=== PATIENT | male | born 1950 | race Caucasian/White ===

== ENCOUNTER → 2016-04-04 | Outpatient (CLI) | payer BC ==
[~2016-04-04] MED LIST: ASPI81TA28 PO; ATOR-26 PO; CARV3.122 PO; CHOL100010 PO; CYAN1TAB5 PO; INSU1INJ7 SC; METF-384 PO; NTRGSL/4 UT; NVLGI SC; SILD100T PO
--- NOTE | 2016-04-04 13:44 | DIAGNOSTIC IMAGING REPORT ---
BILATERAL CAROTID DOPPLER STUDY HISTORY: CORONARY ARTERY DISEASE COMPARISON: None. TECHNIQUE: Real-time, grayscale, and color Doppler sonography of the carotid arteries was performed. Imaging reviewed in the transverse and longitudinal planes. All measurements were calculated based on NASCET criteria. FINDINGS: Antegrade flow is seen in the bilateral vertebral arteries. The brachial pressures are hemodynamically similar. Mild scattered calcified plaque within the bilateral carotid arteries. The peak systolic velocity within the right ICA is 62 cm/s. The right systolic ratio is 1.1. The peak systolic velocity within the left ICA is 82 cm/s. The left systolic ratio is 1.0. IMPRESSION: No hemodynamically significant stenosis seen within the carotid arteries. Electronically signed by: Gibson Peguero M.D. 04/04/2016 1:42 PM Dictated Date/Time: 04/04/2016 1:42 PM
== END | disposition home or self-care (01) ==
LOC: C.ULTRBC 12:53
PROVIDERS: ATTEND Internal Medicine Cardiovascular Disease
DX: I25.10 Atherosclerotic heart disease of native coronary artery without angina pectoris (principal)

== ENCOUNTER → 2016-04-11 | Outpatient (CLI) | payer BC ==
[~2016-04-11] VITALS: Ht 180.3 cm; Wt 11.0 kg
[2016-04-11 15:57] VITALS: BP 137/78; PULSE 94; Ht 180.3 cm; Wt 11.0 kg
== END | disposition home or self-care (01) ==
LOC: C.NEUR 14:22
PROVIDERS: ATTEND Allergy & Immunology Allergy
DX: R06.83 Snoring (principal); R06.81 Apnea, not elsewhere classified; I25.10 Atherosclerotic heart disease of native coronary artery without angina pectoris; E78.5 Hyperlipidemia, unspecified; I10 Essential (primary) hypertension

== ENCOUNTER → 2016-04-27 | Outpatient (CLI) | payer BC ==
--- NOTE | 2016-04-28 06:07 | PAP/PSG TECHNICIAN REPORT ---
[facility] Experimental Worker Polysomnogram Report Study name: None Report date: 04/28/2016 Study date: 04/27/2016 Referring Physician: Jodee Mckoy PA-C Name: ALEJANDRA HEATON Interpreting Physician: Matt Valencia M.D. Date of : 1950 Experimental Worker: Carina Swain RPSGT. Sex: Male Age: 65 StudyType: PSG Weight: 242 lbs Height: 65 years, Height 5' 11" Neck Circum:17inches BMI: 33.75 Medications: ASA 81mg, Atorvastatin 80mg, B-12 2000mcg, Carvedilol 3.125mg, Lantus 100 unit/ml, Lisinopril 5mg, Melatonin, Metformin HCl 1000mg, Vit D, Nitrostat 0.4mg, Novolog 100unit/ml, Viagra 100mg Patient History Study started on room air with no ETCO2 monitoring in room #8. 65 yr old male here tonight for a diagnostic psg. He has a history of CAD s/p coronary artery bypass grafting in 2014. He has HTN, type 2 DM, dyslipidemia, GERD, obesity and osteoarthritis. His noted apneic episodes for the past 2 years. He snores but feels rested during the day. Neck circ=17inches. Parameters Monitored NPSG: E1-M2, E2-M1, Fp1-M2, Fp2-M1, F3-M2, F4-M2, F4-M1, C3-M2, C4-M2, C4-M1, O1-M2, O2-M2, O2-M1, T3-M2, T4-M1, P3-M2, P4-M1, CHIN1, CHIN2, HR, EKG, Legs, PFLOW, SNOR, FLOW, CFLOW, Tidal Volume, THOR, ABDO, SpO2, PLTH, CPRESS, ETCO2 Wave, ETCO2, pH Sleep Architecture Sleep Stages Time at Lights Off 10:34:12 PM STAGES Time (min.) TST (%) Time at Lights On 5:47:12 AM Wake 121.5 -- Total Recording Time (TRT) 432.50 min. N1 30.0 10 Total Sleep Period (TSP) 412.5 min. N2 190.0 61 Total Sleep Time (TST) 311.0min. N3 45.0 14 Awake Time 121.5 min. REM 46.0 15 Wake after Sleep Onset 103.5 min. Sleep Efficiency (SE) 72 % Sleep Onset Latency (PILY) 18.5 min. Number of Stage 1 Shifts None Awakenings 26 Stage Changes 118 Number of REM periods 5 REM 46.0 15 REM Latency 142.5 min. NREM 265.0 85 Body Position Analysis Supine Right Left Side Prone Vertical Total Sleep Time (min.) 149.6 194.5 35.0 229.51 0.0 0.0 Total Sleep Time (%) 26% 63% 11% 74 0% N/A% Total Sleep Time REM (min.) 13.5 32.5 0.0 None 0.0 0.0 Total Sleep Time NREM (min.) 68.0 162.0 35.0 None 0.0 0.0 Intermittent Wake (min.) 68.1 51.5 1.9 None 0.0 0.0 Total Sleep Period (%) 33% None None None None None Arousals Myoclonus (PLM) * Events Count Index Events Count Index Spontaneous 11 2 Events Awake (PLMW) 260 128.4 Respiratory 73 15.8 Events Asleep w/ Arousal (PLMA) 29 5.6 PLM 29 6 Events Asleep w/o Arousal (PLMS) 287 55.4 Snoring 5 1 Total Asleep 316 61.0 Total 118 23 Total 576 80 Respiratory Analysis * CA OA MA CH H RERA Total Count 2 35 0 0 81 0 118 Index 0.4 6.8 0.0 0 15.6 0 22.8 Mean Duration 22.3 23.5 0.0 0.00 21.0 0.0 21.7 Longest Duration 27.1 32.4 0.0 0.00 0.0 0.0 32.4 Respiratory Event Summary Total Supine ~Supine Right Left Prone REM NREM Apneas Count 37 34 3 3 0 N/A 0 37 Index 7.1 25 1 0.9 0.0 N/A 0 8 Hypopneas (4% Desat) Count 81 57 24 21 3 N/A 9 72 Index 15.6 42.0 6 6.5 5.1 N/A 11.7 16.3 Apneas & All Hypopneas Count 118 91 27 24 3 N/A 9 109 Index 22.8 67 7 7 5 N/A 11.7 24.7 Respiratory Events (Plate Keeper+All Hyp+RERA) Count 118 91 27 24 3 N/A 9 109 Index 22.8 67 7 7.4 5.1 N/A 11.7 24.7 Respiratory Related Arousal Count 73 91 9 9 0 N/A 1 81 Index 15.8 54 2 3 0 N/A 1 18 Snoring Analysis Supine Right Left Prone REM NREM Total Snore duration 8.6 min Snores count 122 79 68 N/A 4 265 269 Snore mean duration 1.9 Sec Snores index 90 24 117 N/A 5.2 60.0 51.9 TST with snoring (%) 2.8% Desaturation Event Summary: Minimum %SpO2 Event Count Mean/Min/Max Duration(sec.) Desaturation Index % Time In Bed > 90 171 20.9 / 5.0 / 60.0 27.8 86.6 86 - 90 1 19.0 / 19.0 / 19.0 1.1 12.9 81 - 85 0 N/A 0.0 0.4 76 - 80 0 N/A 0.0 0.0 71 - 75 0 N/A 0.0 0.0 66 - 70 0 N/A 0.0 0.0 61 - 65 0 N/A 0.0 0.0 56 - 60 0 N/A 0.0 0.0 51 - 55 0 N/A 0.0 0.0 < 50 0 N/A 0.0 0.0 Total REM NREM Awake <50% 0.0 min. 0.0 min. 0.0 min. 0.0 min. 51 - 60% 0.0 min. 0.0 min. 0.0 min. 0.0 min. 61 - 70% 0.0 min. 0.0 min. 0.0 min. 0.0 min. 71 - 80% 0.0 min. 0.0 min. 0.0 min. 0.0 min. 81 - 90% 57.1 min. 3.3 min. 35.7 min. 18.1 min. 91 - 100% 369.6 min. 42.6 min. 226.7 min. 100.3 min. Average 92 93 92 92 Minimum SpO2 81 89 81 86 Desaturation Event Index 23.7 13.0 24.7 27.2 # Desat. Events below 89% 64 N/A 50 14 Time(%) with Saturation below 89% 2.5 0.0 1.9 0.6 Time(min.) with Saturation below 89% 10.9 0.0 8.3 2.6 Time (mins) REM (mins) NREM (mins) % of TST SpO2 Below 90% 82 6 N76 4.4 SpO2 Below 88% 17 0 0 2 Heart Rate Analysis Min (bpm) Max (bpm) Average (bpm) Awake 31 127 65 NREM 46 127 60 REM 54 79 64 Overall 46 127 60 Supplemental O2 Values Minimum O2 level: None Value Start Time End Time Experimental Worker Comments Mr. Grier slept in the right, left and supine and positions. No cardiac arrhythmia noted. PLM's were noted. No bruxism noted. Snoring was noted and scored as a 3 on a scale of 1 through 5. (0=no snoring, 5=snoring loud enough to be heard through a closed door or down the menard way). He did not use the restroom during the night. He stated that he slept a little worse than when at home. The final report will be interpreted and signed by a sleep physician. The completed physician report will then be placed in the patient medical record. Therapy (cm H2O) 0 TIB (min.) 432.5 TST (min.) 311.0 Sleep Onset (min.) 18.5 REM Onset From Sleep (min.) 142.5 Sleep Efficiency % 72 Wakefulness (%) 28 Wakefulness (min.) 121.5 NREM 1 (%) 10 NREM 1 (min.) 30.0 NREM 2 (%) 61 NREM 2 (min.) 190.0 NREM 3 (%) 14 NREM 3 (min.) 45.0 REM (%) 15 REM (min.) 46.0 # Arousals 118 Arousal Index 23 # Snore 269 Snore Index 51.9 AHI 22.8 AHI Supine 67 AHI Non-Supine 7 NREM AHI 24.7 REM AHI 11.7 RDI 22.8 # Obstructive Apnea 35 # Central Apnea 2 # Mixed Apnea 0 # Hypopneas 81 RERAs 0 Total Respiratory Events 137 Time Below SpO2 89% (min.) 8.3 Mean NREM SpO2 (%) 92 Mean REM SpO2 (%) 93 Mean Sleep SpO2 (%) 92 Min NREM SpO2 (%) 81 Min REM SpO2 (%) 89 Position Supine (min.) 149.6 Position Non-supine (min.) 229.5 LM Index Sleep 61.0 LM Index NREM 67.9 LM Index REM 20.9 Mean Heart Rate (bpm) 60 Min Heart Rate (bpm) 46
--- NOTE | 2016-04-28 23:47 | POLYSOMNOGRAPH REPORT ---
CLINICAL DATA: A 65-year-old male with BMI of 33.75 referred by Jodee Mckoy, myself, and Dr. Hawkins for evaluation of sleep apnea. He has had coronary bypass grafting. His was noted apneic episodes for the past 2 years. He does not feels rested when he awakens. SLEEP ARCHITECTURE: Total sleep period was 412.5 minutes. Total sleep time was 311 minutes divided between 265 minutes of non-REM sleep and 46 minutes of REM sleep. Sleep onset latency was normal at 18.5 minutes. REM latency was slightly prolonged at 142.5 minutes. Sleep efficiency was reduced at 72%. Wake after sleep onset was 103.5 minutes. Sleep consisted of stage N1 10%, N2 61%, N3 14%, and REM 15%. AROUSAL DATA: 118 arousals were recorded for an index of 23 per hour. 72 were due to respiratory events. PLM DATA: Markedly elevated limb movements during sleep were noted. There were 316 limb movements during sleep noted for an index of 61 per hour with arousals of 5.6 per hour. RESPIRATORY DATA: Moderate sleep apnea was documented. The AHI was 22.8. There were 2 central and 35 obstructive apneic episodes. The longest duration of apnea was 32.4 seconds. There were 81 hypopneic episodes. The mean duration of hypopnea was 21 seconds. OXIMETRY DATA: Nocturnal hypoxemia was seen. Oxygen landon was 81%. Mean saturation was 92%. Time below 88% was 17 minutes. EKG: Heart rates ranged from 46-127 beats per minute. No arrhythmias were noted. PIPE FITTER WELDING'S COMMENTS: The patient was slept in the right, left, and supine positions. Snoring was moderate, rated 3 on a scale of 1-5. IMPRESSION: Moderate sleep apnea/hypopnea with an apnea-hypopnea index of 22.8 with nocturnal hypoxemia. RECOMMENDATIONS: The patient may benefit from a repeat sleep study with CPAP or use of an oral appliance. TELMA
== END | disposition home or self-care (01) ==
LOC: C.NEUR 20:00
PROVIDERS: ATTEND Allergy & Immunology Allergy
DX: G47.36 Sleep related hypoventilation in conditions classified elsewhere (principal)

== ENCOUNTER → 2016-05-02 | Outpatient (CLI) | payer BC ==
[~2016-05-02] VITALS: Ht 180.3 cm; Wt 110.6 kg
[2016-05-02 16:50] VITALS: BP 153/75; PULSE 71; Ht 180.3 cm; Wt 110.6 kg
== END | disposition home or self-care (01) ==
LOC: C.NEUR 15:38
PROVIDERS: ATTEND Internal Medicine Pulmonary Disease
DX: G47.33 Obstructive sleep apnea (adult) (pediatric) (principal); I25.10 Atherosclerotic heart disease of native coronary artery without angina pectoris; Z95.1 Presence of aortocoronary bypass graft

== ENCOUNTER → 2016-08-15 | Outpatient (CLI) | payer BC ==
[~2016-08-15] VITALS: Ht 180.3 cm; Wt 81.0 kg
[2016-08-15 13:39] VITALS: BP 132/72; PULSE 81; BMI 24.9
[2016-08-15 13:40] VITALS: BP 132/72; PULSE 81; Ht 180.3 cm; Wt 81.0 kg
== END | disposition home or self-care (01) ==
LOC: C.NEUR 13:19
PROVIDERS: ATTEND Physician Assistant Medical
DX: G47.33 Obstructive sleep apnea (adult) (pediatric) (principal); I25.10 Atherosclerotic heart disease of native coronary artery without angina pectoris; E66.9 Obesity, unspecified

== ENCOUNTER → 2016-10-31 | Outpatient (CLI) | payer BC ==
[~2016-10-31] VITALS: Ht 180.3 cm; Wt 112.6 kg
[2016-10-31 15:47] VITALS: BP 134/76; PULSE 86; Ht 180.3 cm; Wt 112.6 kg
== END | disposition home or self-care (01) ==
LOC: C.NEUR 14:00
PROVIDERS: ATTEND Physician Assistant Medical
DX: G47.33 Obstructive sleep apnea (adult) (pediatric) (principal); I25.10 Atherosclerotic heart disease of native coronary artery without angina pectoris; I10 Essential (primary) hypertension; E66.9 Obesity, unspecified

== ENCOUNTER → 2016-12-05 | Outpatient (CLI) | payer BC ==
[~2016-12-05] VITALS: Ht 180.3 cm; Wt 111.4 kg
[2016-12-05 15:47] VITALS: BP 131/76; PULSE 78; Ht 180.3 cm; Wt 111.4 kg
== END | disposition home or self-care (01) ==
LOC: C.NEUR 14:29
PROVIDERS: ATTEND Physician Assistant Medical
DX: G47.33 Obstructive sleep apnea (adult) (pediatric) (principal); E66.9 Obesity, unspecified; R06.83 Snoring; I25.10 Atherosclerotic heart disease of native coronary artery without angina pectoris

== ENCOUNTER → 2017-02-16 | Outpatient (CLI) | payer BC ==
[2017-02-16 12:42] LABS: HEMATOCRIT 44.4 % (42-52); MEAN CELL VOLUME 93.5 fL (80-100); MEAN CORPUSCULAR HGB CONC 34.2 g/dl (32-36); MEAN PLATELET VOLUME 10.8 fL (7.4-10.4); PLATELET COUNT 211 K/uL (130-400); RED BLOOD COUNT 4.75 M/uL (4.7-6.1); WHITE BLOOD COUNT 7.07 K/uL (4.8-10.8)
[2017-02-16 12:43] LABS: BASO % 0.4 %; BASO ABS # 0.03 K/uL (0-0.2); COMPLETE YES; EOS % 2.1 %; IG% 0.3 %; LYMPH % 23.8 %; LYMPH ABS # 1.68 K/uL (1.2-3.4); MONO % 6.1 %; NEUT % 67.3 %
[2017-02-16 12:50] LABS: ESTIMATED AVERAGE GLUCOSE 148 mg/dl; HA1C FLAG Normal (Normal)
[2017-02-16 12:54] LABS: ALT/SGPT 34 U/L (12-78); AST/SGOT 19 U/L (15-37); BLOOD UREA NITROGEN 18 mg/dl (7-18); BUN/CREATININE RATIO 19.1 (10-20); CALCIUM 8.5 mg/dl (8.5-10.1); CARBON DIOXIDE 24 mmol/L (21-32); CHLORIDE 105 mmol/L (98-107); CHOLESTEROL 99 mg/dl (0-200); CREATININE 0.94 mg/dl (0.60-1.40); GLUCOSE 171 mg/dl (70-99); POTASSIUM 4.4 mmol/L (3.5-5.1); SODIUM 136 mmol/L (136-145); TRIGLYCERIDES 83 mg/dl (0-150); VERY LOW DENSITY LIPOPROT CALC 17 mg/dl
[2017-02-16 13:05] LABS: ALKALINE PHOSPHATASE 73 U/L (45-117); CHOLESTEROL/HDL RATIO 2.1; HDL CHOLESTEROL 47 mg/dl; LDL CHOLESTEROL CALCULATED 35 mg/dl
== END | disposition home or self-care (01) ==
LOC: C.LABBFT 09:01
PROVIDERS: ATTEND Internal Medicine Geriatric Medicine
DX: I10 Essential (primary) hypertension (principal); E78.5 Hyperlipidemia, unspecified; K76.0 Fatty (change of) liver, not elsewhere classified; E11.9 Type 2 diabetes mellitus without complications; Z51.81 Encounter for therapeutic drug level monitoring; Z79.4 Long term (current) use of insulin; Z86.2 Personal history of diseases of the blood and blood-forming organs and certain disorders involving the immune mechanism; R31.0 Gross hematuria

== ENCOUNTER → 2017-03-26 | Outpatient (CLI) | payer BC ==
--- NOTE | 2017-03-27 06:15 | PAP/PSG TECHNICIAN REPORT ---
[facility] Strategy Manager Polysomnogram Report Study name: None Report date: 03/27/2017 Study date: 03/26/2017 Referring Physician: DR. VALENCIA Name: ALEJANDRA HEATON Interpreting Physician: Matt Valencia M.D. Date of : 1950 Strategy Manager: Brett Singh RPSGT. Sex: Male Age: 66 StudyType: PSG Weight: 245 lbs 17.5 inches Height: 66 years, Height 5' 11" Neck Circum: BMI: 34.17 Medications: ASPIRIN 81 MG, ATORVASTATIN CALCIUM 80 MG, B-12 2000 MCG, BD INSULIN, CARVEDILOL 3.125 MG, LANTUS 100 UNIT/ML, LISINOPRIL 5 MG, METFORMIN HCL 1000 MG, NITROSTAT 0.4 MG, NOVOLOG FLEX PEN 100 UNIT, VIAGRA 100 MG Patient History PATIENT HAS HISTORY OF GERD, HYPERTENSION, INSOMNIA AND CAROLE. HE HAD A SLEEP STUDY DONE IN APRIL OF 2016 AND WAS POSITIVE FOR CAROLE. HE HAD AN AHI OF 2.8/HR BUT WAS UNABLE TO TOLERATE AUTO CPAP. HE IS HERE TODAY FOR AN EVALUATION FOR CAROLE WITH WEARING HIS ORAL APPLIANCE. ESS = 1 RM 8 Parameters Monitored NPSG: E1-M2, E2-M1, Fp1-M2, Fp2-M1, F3-M2, F4-M2, F4-M1, C3-M2, C4-M2, C4-M1, O1-M2, O2-M2, O2-M1, T3-M2, T4-M1, P3-M2, P4-M1, CHIN1, CHIN2, HR, EKG, Legs, PFLOW, SNOR, FLOW, CFLOW, Tidal Volume, THOR, ABDO, SpO2, PLTH, CPRESS, ETCO2 Wave, ETCO2, pH Sleep Architecture Sleep Stages Time at Lights Off 9:48:04 PM STAGES Time (min.) TST (%) Time at Lights On 5:07:34 AM Wake 260.0 -- Total Recording Time (TRT) 440.00 min. N1 38.5 21 Total Sleep Period (TSP) 368.5 min. N2 111.0 62 Total Sleep Time (TST) 179.5min. N3 20.5 11 Awake Time 260.5 min. REM 9.5 5 Wake after Sleep Onset 224.0 min. Sleep Efficiency (SE) 41 % Sleep Onset Latency (PILY) 36.0 min. Number of Stage 1 Shifts None Awakenings 35 Stage Changes 117 Number of REM periods 1 REM 9.5 5 REM Latency 241.5 min. NREM 170.0 95 Body Position Analysis Supine Right Left Side Prone Vertical Total Sleep Time (min.) 15.5 155.8 8.5 164.33 15.7 0.0 Total Sleep Time (%) 3% 87% 5% 92 6% N/A% Total Sleep Time REM (min.) 0.0 9.5 0.0 None 0.0 0.0 Total Sleep Time NREM (min.) 5.2 146.3 8.5 None 9.9 0.0 Intermittent Wake (min.) 10.2 209.4 34.6 None 5.8 0.0 Total Sleep Period (%) 1% None None None None None Arousals Myoclonus (PLM) * Events Count Index Events Count Index Spontaneous 49 16 Events Awake (PLMW) 417 96.2 Respiratory 46 16.4 Events Asleep w/ Arousal (PLMA) 34 11.4 PLM 33 11 Events Asleep w/o Arousal (PLMS) 113 37.8 Snoring 19 6 Total Asleep 147 49.1 Total 146 49 Total 564 77 Respiratory Analysis * CA OA MA CH H RERA Total Count 2 4 0 0 82 19 88 Index 0.7 1.3 0.0 0 27.4 6 35.4 Mean Duration 14.7 12.8 0.0 0.00 18.3 14.8 17.4 Longest Duration 16.5 18.5 0.0 0.00 0.0 19.1 49.0 Respiratory Event Summary Total Supine ~Supine Right Left Prone REM NREM Apneas Count 6 0 6 4 2 0 0 6 Index 2.0 0 2 1.5 14.1 0 0 2 Hypopneas (4% Desat) Count 82 7 75 62 8 5 9 73 Index 27.4 80.0 26 23.9 56.5 30.2 56.8 25.8 Apneas & All Hypopneas Count 88 7 81 66 10 5 9 79 Index 29.4 80 28 25 71 30 56.8 27.9 Respiratory Events (Seafood And Service Meat Manager+All Hyp+RERA) Count 88 8 98 81 10 7 9 79 Index 35.4 91 34 31.2 70.6 42.3 56.8 34.2 Respiratory Related Arousal Count 46 8 46 39 4 3 0 49 Index 16.4 34 16 15 28 18 0 17 Snoring Analysis Supine Right Left Prone REM NREM Total Snore duration 15.0 min Snores count 41 613 18 4 40 636 676 Snore mean duration 1.3 Sec Snores index 469 236 127 24 252.6 224.5 226.0 TST with snoring (%) 8.4% Desaturation Event Summary: Minimum %SpO2 Event Count Mean/Min/Max Duration(sec.) Desaturation Index % Time In Bed > 90 99 27.3 / 6.8 / 97.9 18.1 76.7 86 - 90 4 16.8 / 16.3 / 18.1 2.4 23.0 81 - 85 0 N/A 0.0 0.3 76 - 80 0 N/A 0.0 0.0 71 - 75 0 N/A 0.0 0.0 66 - 70 0 N/A 0.0 0.0 61 - 65 0 N/A 0.0 0.0 56 - 60 0 N/A 0.0 0.0 51 - 55 0 N/A 0.0 0.0 < 50 0 N/A 0.0 0.0 Total REM NREM Awake <50% 0.0 min. 0.0 min. 0.0 min. 0.0 min. 51 - 60% 0.0 min. 0.0 min. 0.0 min. 0.0 min. 61 - 70% 0.0 min. 0.0 min. 0.0 min. 0.0 min. 71 - 80% 0.0 min. 0.0 min. 0.0 min. 0.0 min. 81 - 90% 99.6 min. 5.4 min. 50.7 min. 43.5 min. 91 - 100% 328.3 min. 4.1 min. 118.4 min. 205.8 min. Average 92 90 91 92 Minimum SpO2 79 86 84 79 Desaturation Event Index 13.7 50.5 28.6 2.8 # Desat. Events below 89% 46 5 36 5 Time(%) with Saturation below 89% 3.3 0.7 1.4 1.1 Time(min.) with Saturation below 89% 14.0 3.2 6.1 4.8 Time (mins) REM (mins) NREM (mins) % of TST SpO2 Below 90% 85 8 N77 11.5 SpO2 Below 88% 18 0 0 3 Heart Rate Analysis Min (bpm) Max (bpm) Average (bpm) Awake 30 141 74 NREM 36 127 70 REM 60 84 72 Overall 36 127 71 Supplemental O2 Values Minimum O2 level: None Value Start Time End Time Strategy Manager Comments Mr. Grier slept in the right, left, supine and prone positions. PVC's noted. Leg movements noted. No bruxism noted. Snoring was noted and scored as a 3 on a scale of 1 through 5. (0=no snoring, 5=snoring loud enough to be heard through a closed door or down the menard way) Mr. Grier awoke to use the restroom 1 time during the night. Mr. Grier stated I did not sleep as well as I do when I am in my own bed. Dr. Rao was overseeing the testing as well. The final report will be interpreted and signed by a sleep physician. The completed physician report will then be placed in the patient medical record. Therapy (cm H2O) 0 TIB (min.) 439.5 TST (min.) 179.5 Sleep Onset (min.) 36.0 REM Onset From Sleep (min.) 241.5 Sleep Efficiency % 41 Wakefulness (%) 59 Wakefulness (min.) 260.5 NREM 1 (%) 21 NREM 1 (min.) 38.5 NREM 2 (%) 62 NREM 2 (min.) 111.0 NREM 3 (%) 11 NREM 3 (min.) 20.5 REM (%) 5 REM (min.) 9.5 # Arousals 146 Arousal Index 49 # Snore 676 Snore Index 226.0 AHI 29.4 AHI Supine 80 AHI Non-Supine 28 NREM AHI 27.9 REM AHI 56.8 RDI 35.4 # Obstructive Apnea 4 # Central Apnea 2 # Mixed Apnea 0 # Hypopneas 82 RERAs 19 Total Respiratory Events 106 Time Below SpO2 89% (min.) 9.3 Mean NREM SpO2 (%) 91 Mean REM SpO2 (%) 90 Mean Sleep SpO2 (%) 91 Min NREM SpO2 (%) 84 Min REM SpO2 (%) 86 Position Supine (min.) 15.5 Position Non-supine (min.) 174.3 LM Index Sleep 49.1 LM Index NREM 50.8 LM Index REM 18.9 Mean Heart Rate (bpm) 71 Min Heart Rate (bpm) 36
--- NOTE | 2017-03-27 16:57 | POLYSOMNOGRAPH REPORT ---
CLINICAL DATA: A 66-year-old male with BMI of 34.17 referred by myself and Dr. Rao and Dr. Hawkins for evaluation of the effectiveness of an oral appliance. He does have moderate sleep apnea and had a CPAP titration study but was unable to tolerate auto CPAP. He had an oral appliance made by Dr. Rao and is here to determine the effectiveness of it. SLEEP ARCHITECTURE: Total sleep period was 368.5 minutes. Total sleep time was 179.5 minutes divided between 170 minutes of non-REM sleep and 9.5 minutes of REM sleep. Sleep onset latency was delayed at 36 minutes. REM latency was delayed at 241.5 minutes. Sleep efficiency was reduced at 41%. Wake after sleep onset was elevated at 224 minutes. Sleep consisted of stage N1 20%, stage N2 62%, stage N3 11%, and REM 5%. AROUSAL DATA: [id number] arousals were recorded for an index of 49 per hour. Forty-nine were spontaneous. Forty-six were due to respiratory events. Nineteen were due to snoring events. PLM DATA: Significant PLMD was noted. There were 147 limb movements during sleep noted for an index of 49 per hour with arousal index of 11.4 per hour. RESPIRATORY DATA: Moderate to severe sleep apnea was again documented. The AHI was 29.4. The RDI was 35.4. There were 2 central and 4 obstructive apneic episodes. The longest duration of apnea was 18.5 seconds. There were 82 hypopneic episodes with mean duration of 18.3 seconds. There were 19 RERAs. The longest RERA was 19.1 seconds. OXIMETRY DATA: Nocturnal hypoxemia was seen. Oxygen landon was 84% during non-REM sleep. The mean saturation was 92%. Time below 88% was 18 minutes. EKG: Heart rates ranged from 36-127 beats per minute. PVCs were noted. PRODUCTION MINER'S COMMENTS: The patient slept in the right, left, supine, and prone positions. Snoring was rated as moderate 3 on a scale of [address] Rao was present to oversee the testing. IMPRESSION: Moderate to severe sleep apnea/hypopnea with an oral appliance in place with an AHI of 29.4 and an RDI of 35.4 with nocturnal hypoxemia. RECOMMENDATIONS: The patient should be considered for readjustment of his oral appliance. If that cannot be done or is not effective, then another trial of CPAP may be of benefit. Clinical correlation is needed.
== END | disposition home or self-care (01) ==
LOC: C.NEUR 21:00
PROVIDERS: ATTEND Internal Medicine Pulmonary Disease
DX: G47.33 Obstructive sleep apnea (adult) (pediatric) (principal)

== ENCOUNTER → 2017-06-12 | Outpatient (CLI) | payer BC | END | disposition home or self-care (01) | LOC: C.MAMM 08:20 | PROVIDERS: ATTEND Internal Medicine Geriatric Medicine | DX: S32.020A Wedge compression fracture of second lumbar vertebra, initial encounter for closed fracture (principal); X58.XXXA Exposure to other specified factors, initial encounter ==

== ENCOUNTER → 2017-06-26 | Outpatient (CLI) | payer BC ==
--- NOTE | 2017-06-28 14:24 | POLYSOMNOGRAPH REPORT ---
CLINICAL DATA: A 66-year-old male with BMI of 34.5 referred for a home sleep apnea test to assess the efficacy of his oral appliance. He has tried auto-CPAP in the past and failed. He has an oral appliance and it has been adjusted several times. He is back to determine if his appliance is currently effective. On the evening of 06/26/2017, a home sleep apnea test was performed using a [place] type 2 monitor. RECORDING RESULTS: Total recording time was 10 hours. The patient's estimated sleep time and patient monitoring time was 8.3 hours. RESPIRATORY DATA: Severe sleep apnea was documented. The MELLY was 31. There were 61 obstructive, 3 mixed, and 9 central apneic episodes. There were 185 hypopneic episodes. The longest respiratory event was 59 seconds. OXIMETRY DATA: Nocturnal hypoxemia was seen. Oxygen landon was 83%. Mean saturation was 92%. Time below 89% was 30 minutes. HEART RATE DATA: Heart rates ranged from 50-69 beats per minute. SNORING DATA: Snoring was recorded throughout the night. IMPRESSION: Severe sleep apnea/hypopnea with an MELLY of 31 with nocturnal hypoxemia in spite of use of an oral appliance. RECOMMENDATIONS: The patient should follow up with Dr. Rao. If he wishes to consider CPAP again, he could be seen by Sleep Medicine. Clinical correlation is needed. TELMA
== END | disposition home or self-care (01) ==
LOC: C.NEUR 10:19
PROVIDERS: ATTEND Physician Assistant Medical
DX: G47.33 Obstructive sleep apnea (adult) (pediatric) (principal)

== ENCOUNTER → 2017-06-27 | Outpatient (CLI) | payer BC ==
[2017-06-27 12:42] LABS: HEMOGLOBIN A1C 6.7 % (4.5-5.6)
== END | disposition home or self-care (01) ==
LOC: C.LABBFT 08:44
PROVIDERS: ATTEND Nurse Practitioner Adult Health
DX: E11.9 Type 2 diabetes mellitus without complications (principal); Z79.4 Long term (current) use of insulin